=== PATIENT | male | born 1980 | race Caucasian/White ===

== ENCOUNTER 2019-03-19 13:28 | Emergency (ER) | payer OTHER ==
[2019-03-19] MEDS ORDERED: FLU Vacc QS2019-20(6MOS+)/PF 60 MCG/0.5 ML SYRINGE IM ONE (14:00)
[2019-03-19] MEDS ORDERED: Lidocaine 4% Top Soln 50 ML Bottle MUCMEM ONE (14:25)
[2019-03-19] MEDS ORDERED: Benzocaine 20% Oral Spray 59.2 ML Canister MUCMEM ONE (14:25)
--- NOTE | 2019-03-19 14:32 | EDM.PDOC ---
ED HPI GENERAL MEDICAL PROBLEM - General Chief Complaint: Gastrointestinal Problem Stated Complaint: SWALLOWED A PIECE OF GLASS Time Seen by Provider: 03/19/19 13:40 Source of Information: Reports: Patient History Limitations: Reports: No Limitations - History of Present Illness INITIAL COMMENTS - FREE TEXT/NARRATIVE: The patient presents because he may have swallowed some glass. He was in his truck this morning and he had some coffee. He took a drink and he thought he felt like he swallowed some glass. He does have a broken window in his truck with some glass inside of the truck. He feels like something may be stuck to the left side of the throat. He does not have any pain to his throat. He has a little pain to his upper abdomen. This happened at 8am this morning. Onset: Sudden Duration: Hour(s): Location: Reports: Abdomen Quality: Reports: Ache Severity: Mild Improves with: Reports: None Worsens with: Reports: None Associated Symptoms: Reports: No Other Symptoms Throat Pain Score (Numeric/FACES): 2 - Related Data Allergies Allergy/AdvReac Type Severity Reaction Status Date / Time lisinopril Allergy Itching Verified 03/19/19 13:41 Home Meds: Home Meds Losartan [Cozaar] 100 mg PO DAILY 03/19/19 [History] Pantoprazole [ProTONIX IV] 40 mg PO DAILY 03/19/19 [History] buPROPion [Wellbutrin] 150 mg PO DAILY 03/19/19 [History] Past Medical History Cardiovascular History: Reports: Hypertension Psychiatric History: Reports: Depression Social & Family History - Tobacco Use Smoking Status *Q: Never Smoker ED ROS GENERAL - Review of Systems Review Of Systems: See Below Constitutional: Reports: No Symptoms HEENT: Reports: No Symptoms Respiratory: Reports: No Symptoms Cardiovascular: Reports: No Symptoms Endocrine: Reports: No Symptoms GI/Abdominal: Reports: Abdominal Pain : Reports: No Symptoms Musculoskeletal: Reports: No Symptoms Skin: Reports: No Symptoms Neurological: Reports: No Symptoms ED EXAM, GI/ABD - Physical Exam Exam: See Below Exam Limited By: No Limitations General Appearance: Alert, No Apparent Distress Ears: Normal External Exam Nose: Normal Inspection Throat/Mouth: Normal Inspection Head: Atraumatic, Normocephalic Neck: Normal Inspection Respiratory/Chest: No Respiratory Distress, Lungs Clear, Normal Breath Sounds Cardiovascular: Regular Rate, Rhythm, No Edema, No Murmur GI/Abdominal Exam: Soft, Non-Tender, No Organomegaly, No Mass Back Exam: Normal Inspection Extremities: Normal Inspection Course - Vital Signs Last Recorded V/S: Last Vital Signs Temp 97.3 F 03/19/19 13:38 Pulse 60 03/19/19 13:38 Resp 16 03/19/19 13:38 BP 159/112 H 03/19/19 13:38 Pulse Ox 97 03/19/19 13:38 - Orders/Labs/Meds Orders: Active Orders 24 hr Category Date Time Status Influenza Vaccine Charge [RC] .DISCHARGE Care 03/19/19 13:47 Active Abdomen Series w Chest 1V [CR] Stat Exams 03/19/19 13:55 Taken Neck Soft Tissue [CR] Stat Exams 03/19/19 13:54 Taken Meds: Medications Discontinued Medications Generic Name Dose Route Start Last Admin Trade Name Caleb PRN Reason Stop Dose Admin Benzocaine 5 ml 03/19/19 14:25 03/19/19 14:46 Hurricaine 20% [place] MUCMEM 03/19/19 14:26 5 ml ONETIME ONE Administration Influenza Virus Vaccine 1 each 03/19/19 13:47 Pharmacy To Dose - Influenza Vaccine IM 03/19/19 13:48 ONETIME ONE Influenza Virus Vaccine 60 mcg 03/19/19 14:00 03/19/19 13:55 Fluzone Quad 1536-1537 Syringe IM 03/19/19 14:01 60 mcg .ONCE ONE Administration Lidocaine HCl 3 ml 03/19/19 14:25 03/19/19 14:46 Xylocaine 4% Top Soln MUCMEM 03/19/19 14:26 3 ml ONETIME ONE Administration - Re-Assessments/Exams Free Text/Narrative Re-Assessment/Exam: 03/19/19 14:34 I ordered x-ray of his neck, CXR with abdominal series. I did not see any glass. I will use the fiberoptic scope and take a look at his throat. 03/19/19 14:53 I gave him some lidocaine and hurricane spray and looked with the fiberoptic scope and I did not see any glass. I called Dr Sellers our general surgeon and he felt it was okay to send him home. If he did ingest some glass it can pass on its own but if he has severe abdominal pain he should return. Departure - Departure Time of Disposition: 15:00 Disposition: Home, Self-Care 01 Condition: Good Clinical Impression: Foreign body ingestion Qualifiers: Encounter type: initial encounter Qualified Code(s): T18.9XXA - Foreign body of alimentary tract, part unspecified, initial encounter - Discharge Information *PRESCRIPTION DRUG MONITORING PROGRAM REVIEWED*: Not Applicable *COPY OF PRESCRIPTION DRUG MONITORING REPORT IN PATIENT [place]: Not Applicable Referrals: PCP,Not In Area [Primary Care Provider] - Viktor Sellers MD [Physician] - Forms: ED Department Discharge Additional Instructions: You can eat and drink like normal. I did not see any glass but even if you did you can pass this without difficulty. If you develop severe abdominal pain, please return. Sepsis Event Note - Evaluation Sepsis Screening Result: No Definite Risk - Focused Exam Vital Signs: Vital Signs Temp Pulse Resp BP Pulse Ox 03/19/19 13:38 97.3 F 60 16 159/112 H 97 Date Exam was Performed: 03/19/19 Time Exam was Performed: 14:53 - My Orders Last 24 Hours: My Active Orders 03/19/19 13:47 Influenza Vaccine Charge [RC] .DISCHARGE 03/19/19 13:54 Neck Soft Tissue [CR] Stat 03/19/19 13:55 Abdomen Series w Chest 1V [CR] Stat - Assessment/Plan Last 24 Hours: My Active Orders 03/19/19 13:47 Influenza Vaccine Charge [RC] .DISCHARGE 03/19/19 13:54 Neck Soft Tissue [CR] Stat 03/19/19 13:55 Abdomen Series w Chest 1V [CR] Stat
--- NOTE | 2019-03-22 17:48 | CR ---
Soft tissue neck: AP and lateral views of the neck were obtained. Slight disc space narrowing and anterior and slight posterior spurring is noted at C5-C6. Prevertebral soft tissues are normal. Epiglottis is normal. Slight scoliosis is noted within the spine. No radiopaque foreign object is seen. Impression: 1. Bony findings. 2. No soft tissue abnormality is seen on two-view soft tissue neck exam. 3. No radiopaque foreign object is appreciated. Diagnostic code #2 This report was dictated in [place] Standard Time
--- NOTE | 2019-03-22 17:48 | CR ---
Abdominal series: PA view of the chest was obtained as well as supine and upright views of the abdomen. Comparison: No prior chest or abdominal study. Heart size and mediastinum are normal. Lungs are clear. No free air is seen. Bowel gas pattern appears normal. Calcifications are seen within the pelvis which are compatible with phleboliths. No soft tissue abnormality is seen. Bony structures appear within normal limits. Impression: 1. Nothing acute is seen on abdominal series. Diagnostic code #1 This report was dictated in [place] Standard Time
== END 2019-03-19 15:07 | disposition home or self-care (01) ==
LOC: JD.ED 13:28
DX: T18.9XXA Foreign body of alimentary tract, part unspecified, initial encounter (principal); I10 Essential (primary) hypertension; F32.9 Major depressive disorder, single episode, unspecified; Z79.899 Other long term (current) drug therapy; Z23 Encounter for immunization
CPT/HCPCS: 70360; 74022; 90471; 90686; 99283; A9270; 99282; G0008